=== PATIENT | female | born 1970 | race Caucasian/White ===

== ENCOUNTER 2016-09-08 10:49 | Day surgery (SDC) | payer OTHER ==
[~2016-09-08] VITALS: Ht 166.4 cm; Wt 72.6 kg
[~2016-09-08 10:49] MED LIST: DEPAKOTE500 MG PO; DICLOFENAC POTA50 MG PO; LORTAB 5-325 M1 EACH PO; MELATONIN5 M1 PO; NAPROSYN500 MG PO; TYLENOL EXTRA500 MG PO
== END 2016-09-08 12:40 | disposition home or self-care (01) ==
LOC: PAIN 10:49 → SDC 11:30 → PAIN 11:30
PROC: 3E0S33Z Introduction of Anti-inflammatory into Epidural Space, Percutaneous Approach (ICD-10-PCS; principal; 2016-09-08)
DX: M54.16 Radiculopathy, lumbar region (principal); F41.9 Anxiety disorder, unspecified; Z88.1 Allergy status to other antibiotic agents
CPT/HCPCS: J1100; J2250; J3010